=== PATIENT | male | born 1980 | race Caucasian/White ===

== ENCOUNTER 2017-10-05 15:01 | Emergency (ER) | payer SELFPAY ==
[~2017-10-05] VITALS: Ht 177.8 cm; Wt 70.0 kg
[2017-10-05] MEDS ORDERED: LIDOCAINE HCL 1% 20ML VIAL (Pyxis) INJ MC ONE (16:00)
[2017-10-05] MEDS ORDERED: BACITRACIN ZINC OINT UDPKT TOP ONE (16:00)
[2017-10-05] MEDS ORDERED: TRAMADOL 50MG TABLET PO ONE (17:00)
[2017-10-05] MEDS ORDERED: LIDOCAINE HCL/PF 1% 10 MG/ML 5ML VIAL IJ NR (17:30)
[2017-10-05 19:30] VITALS: BP 135/82
== END 2017-10-05 19:38 | disposition home or self-care (01) ==
LOC: ER 15:01
DX: S02.2XXA Fracture of nasal bones, initial encounter for closed fracture (principal); S01.511A Laceration without foreign body of lip, initial encounter; S01.21XA Laceration without foreign body of nose, initial encounter; F12.10 Cannabis abuse, uncomplicated; V89.2XXA Person injured in unspecified motor-vehicle accident, traffic, initial encounter; Y93.89 Activity, other specified; Y92.89 Other specified places as the place of occurrence of the external cause; Y99.8 Other external cause status
CPT/HCPCS: 12013; 70486; 99284; A4217; J3490; X7700; Z7610